=== PATIENT | male | born 1980 | race Caucasian/White ===

== ENCOUNTER 2021-05-30 06:21 | Day surgery (SDC) | payer MEDICARE, OTHER ==
[2021-05-28 10:17] VITALS: BMI 33.0
[~2021-05-30 06:21] MED LIST: DEXAMETHASONE SOD PHOSPHATE 4 MG/ML 1 ML VIAL IV ONE; LACTATED RINGERS 1,000 ML IV SCH; LIDOCAINE 1% (10MG/ML) FOR IV START INTRADERMA PRN; ONDANSETRON 4 MG/2 ML VIAL IVP ONE; metroNIDAZOLE-NS PMX 500 MG in SALINE 1 100ML.BAG IVPB PRN
[2021-05-30] MEDS ORDERED: HYDROmorphone 0.5 MG/0.5 ML SYRINGE IVP PRN (07:00)
[2021-05-30] MEDS ORDERED: PROPOFOL 10 MG/ML 20 ML VIAL IV ONE (07:25)
[2021-05-30] MEDS ORDERED: LIDOCAINE 1% INJ 10MG/ML (20 ML MDV) ONE (07:25)
[2021-05-30] MEDS ORDERED: KETAMINE 10 MG/ML 20 ML VIAL ONE (07:25)
[2021-05-30] MEDS ORDERED: SUCCINYLCHOLINE CHLORIDE 100 MG/5 ML SYR IV ONE (07:25)
[2021-05-30] MEDS ORDERED: fentaNYL (PF) 50 MCG/ML 2 ML AMP ONE (07:25)
[2021-05-30] MEDS ORDERED: MIDAZOLAM 2 MG/2 ML VIAL ONE (07:25)
--- NOTE | 2021-05-30 08:15 | P.GSCN ---
History of Present Illness Consult date: 05/30/21 Reason for Consult: -4 BWS -Periodic Exam -Perioprophy No dental caries detected radiographically or intra orally, just generalized calculus accumulation due to patient not getting a hygiene cleaning in four years. No post op meds needed. Thank you Past Medical History Past Medical History: GERD/Reflux, Musculoskeletal Disorder, Neurologic Disorder Additional Past Medical History / Comment(s): "Cerabral Palsy,Mentally IMPAIRED FUNCTIONS ABOUT AT AGE 1" - DOES NOT VERBALLY COMMUNICATE ; WEARS DIAPERS , Valgus deformity of isac. feet History of Any Multi-Drug Resistant Organisms: None Reported Additional Past Surgical History / Comment(s): dental work Past Anesthesia/Blood Transfusion Reactions: No Reported Reaction Additional Psychological History / Comment(s): AGITATION AT TIMES, CEREBAL PALSY , MENTALLY IMPAIRED, Smoking Status: Never smoker Past Alcohol Use History: None Reported Past Drug Use History: None Reported - Past Family History Mother Family Medical History: Cancer Additional Family Medical History / Comment(s): BREAST CANCER Father Family Medical History: Cancer Additional Family Medical History / Comment(s): BLADDER CANCER Medications and Allergies Home Medications Medication Instructions Recorded Confirmed Type Ascorbic Acid [Vitamin C] 500 mg PO DAILY 07/27/17 05/28/21 History Ibuprofen [Motrin] 400 mg PO Q8HR PRN 07/27/17 05/28/21 History QUEtiapine [SEROquel] 150 mg PO HS 07/27/17 05/28/21 History tiZANidine [Zanaflex] 4 mg PO Q8HR PRN 07/27/17 05/28/21 History Acetaminophen Tab [Tylenol] 650 mg PO Q4H PRN 05/28/21 05/28/21 History Ergocalciferol [Vitamin D2 (1250 1,250 mcg PO Q14D 05/28/21 05/28/21 History Mcg = [id number] Iu)] LORazepam [Ativan] 0.5 mg PO TID PRN 05/28/21 05/28/21 History OXcarbazepine [Trileptal] 150 mg PO TID 05/28/21 05/28/21 History Omeprazole Magnesium [PriLOSEC] 20 mg PO DAILY 05/28/21 05/28/21 History Allergies Allergy/AdvReac Type Severity Reaction Status Date / Time No Known Allergies Allergy Verified 05/28/21 09:01 Surgical - Exam Vital Signs Temp Pulse Resp BP Pulse Ox 97.9 F 84 20 134/100 95 05/30/21 06:51 05/30/21 06:51 05/30/21 06:51 05/30/21 06:51 05/30/21 06:51
[2021-05-30 09:40] VITALS: TEMP 97.2
[2021-05-30 09:50] VITALS: RESP 16
[2021-05-30 10:33] VITALS: BP 129/85; PULSE 80
== END 2021-05-30 10:46 | disposition home or self-care (01) ==
LOC: OR 06:21
PROVIDERS: ATTEND Dentist
DX: K02.9 Dental caries, unspecified (principal); G80.9 Cerebral palsy, unspecified; F72 Severe intellectual disabilities; R45.1 Restlessness and agitation; K21.9 Gastro-esophageal reflux disease without esophagitis; Z79.1 Long term (current) use of non-steroidal anti-inflammatories (NSAID)
CPT/HCPCS: 41899; J2250; J1100; J2405; J2001; J3010; J0330; J2704